=== PATIENT | female | born 2000 | race Caucasian/White ===

== ENCOUNTER 2020-09-30 12:04 | Outpatient (REF) | payer OTHER, SELFPAY ==
[2020-10-04 00:42] LABS: Lamotrigine Lamictal 8.2 mcg/mL (4.0-18.0)
[2020-10-04 19:57] LABS: Levetiracetam Keppra 28.5 mcg/mL (12.0-46.0)
== END 2020-09-30 12:05 | disposition home or self-care (01) ==
LOC: HO.LAB 12:04
PROVIDERS: PCP Family Medicine; Visit Provider Psychiatry & Neurology Neurology
DX: G40.209 Localization-related (focal) (partial) symptomatic epilepsy and epileptic syndromes with complex partial seizures, not intractable, without status epilepticus (principal); Z79.899 Other long term (current) drug therapy
CPT/HCPCS: 36415; 80175; 80177

== ENCOUNTER 2020-12-02 08:51 | Outpatient (REF) | payer OTHER, SELFPAY ==
[2020-12-02 11:23] LABS: MANUAL DIFF FLAG NO
[2020-12-02 11:29] LABS: Basophils Percent Auto 0.5 % (0-2); Eosinophils Absolute Auto 0.2 X10*3/uL (0.0-0.4); Eosinophils Percent Auto 2.9 % (0-4); Hematocrit 39.8 % (37-47); Hemoglobin 13.1 g/dl (12.0-16.0); Imm Gran Abs Auto 0.02 X10*3/uL (0.00-0.03); Imm Gran Pct Auto 0.3 % (0.0-0.4); Lymphocytes Absolute Auto 1.8 X10*3/uL (1.2-4.9); Mean Corpuscular HGB Conc 32.9 g/dl (31.0-35.0); Mean Corpuscular Hemoglobin 30.5 pg (27.0-33.0); Mean Corpuscular Volume 92.6 fL (80-98); Mean Platelet Volume 10.5 fL (9.4-12.3); Monocytes Absolute Auto 0.4 X10*3/uL (0.1-1.2); Monocytes Percent Auto 5.9 % (2-11); Neutrophils Absolute Auto 3.7 X10*3/uL (2.0-8.3); Neutrophils Percent Auto 60.4 % (45-73); Platelet Count 211 X10*3/uL (160-400); Red Cell Distribution Width 11.8 % (11.0-16.0); White Blood Count 6.1 X10*3/uL (4.8-10.8)
[2020-12-02 11:59] LABS: Alanine Aminotransferase 8 U/L (0-31); Albumin Level 4.7 g/dL (3.5-5.0); Alkaline Phosphatase 71 U/L (39-117); Anion Gap 12 (12-20); Aspartate Amino Transferase 13 U/L (5-31); Bilirubin Total 0.6 mg/dL (0.0-1.0); Blood Urea Nitrogen 11 mg/dL (9-16); Calcium 9.6 mg/dL (8.4-10.2); Carbon Dioxide 26 mmol/L (22-29); Chloride 108 mmol/L (96-108); Cholesterol 182 mg/dL; Estimated Glomerular Filt Rate > 60; Glucose Fasting 96 mg/dL (60-99); HDL Cholesterol 38 mg/dL; LDL Cholesterol Calculated 130 mg/dl; Potassium 4.8 mmol/L (3.3-5.1); Sodium 141 mmol/L (135-145); Triglycerides 70 mg/dL
[2020-12-02 12:10] LABS: TSH reflex Free T4 1.08 uIU/mL (0.32-4.0)
== END 2020-12-02 08:52 | disposition home or self-care (01) ==
LOC: HO.WFDLDS 08:51
PROVIDERS: Visit Provider Family Medicine
DX: Z00.00 Encounter for general adult medical examination without abnormal findings (principal)
CPT/HCPCS: 36415; 80053; 80061; 84443; 85025

== ENCOUNTER 2023-02-01 11:29 | Outpatient (AMB) | payer OTHER, SELFPAY ==
--- NOTE | 2023-02-01 11:33 | MHC.PC.OV ---
Vital Signs 02/01/23 11:34 Height 5 ft 6.5 in Weight 120 lb 8 oz BMI 19.2 BP 120/74 Blood Pressure Location Lt brachial Position Sitting Pulse 82 Pulse Source Pulse Oximeter Pulse Oximetry (%) 99 Oxygen Delivery Method Room Air Intake Visit Reasons: Disability paperwork Intake Note: Patient is here for dsiability paperwork. Allergies amoxicillin Allergy (Intermediate, Verified 02/01/23 11:40) Hives penicillin V Allergy (Intermediate, Verified 02/01/23 11:40) Hives Tobacco use date assessed: 02/01/23 Dental Screening Dental Screen Date: 02/01/23 Did you have a dental visit in the last 12 months?: No Did you have a dental problem in the last 6 months where you did not have access to dental care?: No Was dental information given to patient?: Patient declined HPI Disability paperwork HPI Details 22 y/o female presents to f/u disability paperwork for her epilepsy and anxiety/depression. [facility] Medical History (Updated 09/17/21 @ 11:27 by Sage Krueger) Anxiety Depression Epilepsy Family History Maternal Grandmother Diabetes Father High blood pressure Social History Housing: House Alcohol intake: never Patient Tobacco Use Status: Never used Tobacco e-Cigarette/Vaping Use: Currently Using Current occupational status: unemployed Cognitive needs: Yes (memory problems, needs to be reminded of things.) Hearing needs: Yes Vision needs: Yes (glasses) Questionnaire Thrive Questionnaire Date Thrive assessed: 08/18/22 FAREED-7 AMB Questionnaire FAREED-7 Date FAREED - 7 assessed: 08/18/22 Source: Developed by Drs. Alexis Jean, Fabiola Strickland, Brant Mcekon and colleagues, with an educational lisette from [employer]. Review of Systems Const Denies chills, Denies fatigue, Denies fever(s), Denies headache(s) and Denies weakness ENT Denies dizziness and Denies headache(s) Card Denies dyspnea Resp Denies cough, Denies dyspnea, Denies wheezing and Denies other (shortness of breath) Musc Denies numbness and Denies tingling Neuro Denies dizziness, Denies headache(s), Denies numbness, Denies tingling and Denies weakness Psych Reports anxiety and Reports depression Endo Denies fatigue Aller/Immun Denies wheezing Physical exam (Primary Care) Vital Signs: Last Vital Signs Pulse 82 02/01/23 11:34 BP 120/74 02/01/23 11:34 Pulse Ox 99 02/01/23 11:34 Oxygen Delivery Method Room Air 02/01/23 11:34 BMI result Body Mass Index 19.2 Tobacco/Smoking Status: Tobacco use Status Tobacco use date assessed 02/01/23 02/01/23 11:49 Patient Tobacco Use Status Never used Tobacco 02/01/23 11:33 e-Cigarette/Vaping Use Currently Using 02/01/23 11:49 Thrive Assessment: Date of Thrive Assessment Date Thrive assessed 08/18/22 02/01/23 11:33 Const General: well developed; No acute distress Nutritional Appearance: well nourished Orientation/consciousness: patient oriented x3 HENMT Head: Yes normocephalic and Yes atraumatic Eyes General: appearance normal, both eyes and all related structures Pupils: Equal, round and reactive pupils present EOM: EOMs intact bilaterally Resp Effort & Inspection: normal respiratory effort Neuro General: patient oriented x3 and gait normal Cranial nerves: Yes Equal, round and reactive pupils present Psych Affect: normal affect Assessment and Plan Assessment & Plan (1) Anxiety and depression: Code(s): F41.9 - Anxiety disorder, unspecified; F32.9 - Major depressive disorder, single episode, unspecified Plan: Taking clonazepam and sertraline As prescribed Patient has paperwork which she needs to have filled out but does not require my input Stable No changes made today (2) Complex partial seizure disorder: Code(s): G40.209 - Localization-related (focal) (partial) symptomatic epilepsy and epileptic syndromes with complex partial seizures, not intractable, without status epilepticus Plan: Taking her medications as prescribed Patient has paperwork which she needs to fill out but does not require my input Currently stable. Follow-up with Neurology as recommended (3) Family planning: Code(s): Z30.09 - Encounter for other general counseling and advice on contraception Plan: Patient had been on Junel in the past and tolerated this. She would like to resume contraception. Will refer her to micro computer specialist Orders: Referrals [employer] Referral G40.909 - Epilepsy, unspecified, not intractable, without status epilepticus, Z30.09 - Encounter for other general counseling and advice on contraception Coding Level of Care Code Est Pt Level 3 (38403) Diagnoses Anxiety and depression F41.9; F32.9 Complex partial seizure disorder G40.209 Family planning Z30.09
[2023-02-01 11:34] VITALS: BP 120/74; PULSE 82; O2SAT 99; BMI 19.2
== END 2023-02-01 12:14 | disposition home or self-care (01) ==
PROVIDERS: PCP Family Medicine; Visit Provider Family Medicine
DX: F41.9 Anxiety disorder, unspecified (principal); F32.9 Major depressive disorder, single episode, unspecified; G40.209 Localization-related (focal) (partial) symptomatic epilepsy and epileptic syndromes with complex partial seizures, not intractable, without status epilepticus; Z30.09 Encounter for other general counseling and advice on contraception
CPT/HCPCS: 99213

== ENCOUNTER 2023-08-22 15:51 | Outpatient (AMB) | payer OTHER, SELFPAY ==
[2023-08-22 16:12] VITALS: BP 118/70; PULSE 78; O2SAT 98; BMI 19.9
--- NOTE | 2023-08-22 16:12 | MHC.PC.OV ---
Vital Signs 08/22/23 16:12 Height 5 ft 6.5 in Weight 125 lb BMI 19.9 BP 118/70 Blood Pressure Location Lt brachial Position Sitting Pulse 78 Pulse Source Pulse Oximeter Pulse Oximetry (%) 98 Oxygen Delivery Method Room Air Intake Visit Reasons: Extended exam with f/u labs and health maint. Intake Note: Patient is here for extended exam, and she would like referral to Neurology and her control pills refill. Allergies amoxicillin Allergy (Intermediate, Verified 08/22/23 16:31) Hives penicillin V Allergy (Intermediate, Verified 08/22/23 16:31) Hives Tobacco use date assessed: 02/01/23 HPI Extended exam with f/u labs and health maint. HPI Details 23 y/o female presents for an extended exam with f/u labs and health maintenance. No recent labs to review. She is requesting referral to neurology for epilepsy. PHQ-9 17 and FAREED-7 19 today. Pt states she has her boyfriend for emotional support. She denies any thoughts of hurting herself but does note thoughts of being better off gone . Pt notes she walks for exercise and tries to keep herself active. [facility] Medical History Anxiety Depression Epilepsy Family History Maternal Grandmother Diabetes Father High blood pressure Social History Housing: House Alcohol intake: never Patient Tobacco Use Status: Never used Tobacco e-Cigarette/Vaping Use: Currently Using Current occupational status: unemployed Cognitive needs: Yes (memory problems, needs to be reminded of things.) Hearing needs: Yes Vision needs: Yes (glasses) Questionnaire PHQ-9 Over the last 2 weeks, how often have you been bothered by any of the following problems? 1. Little interest or pleasure in doing things: nearly every day 2. Feeling down, depressed, or hopeless: nearly every day 3. Trouble falling or staying asleep, or sleeping too much: nearly every day 4. Feeling tired or having little energy: more than half the days 5. Poor appetite or overeating: not at all 6. Feeling bad about yourself - or that you are a failure or have let yourself or your family down: nearly every day 7. Trouble concentrating on things, such as reading the newspaper or watching television: several days 8. Moving or speaking so slowly that other people could have noticed. Or the opposite - being so fidgety or restless that you have been moving around a lot more than usual: several days 9. Thoughts that you would be better off or of hurting yourself in some way: several days Total score: 17 Depression Screening Interpretation: Positive Depression Screening Follow-up: Change in Medication (Increase?sertraline) Depression Screening Done: Yes 66667 - PHQ-9 Billing: Yes Source: Developed by Drs. Alexis Jean, Fabiola Strickland, Brant Mckeon and colleagues, with an educational lisette from [employer]. Thrive Questionnaire Date Thrive assessed: 08/22/23 I am a: Patient What is your living situation today?: I have a steady place to live Within the past 12 months, did the food you bought not last and you didn't have the money to get more?: Never true Within the past 12 months, did you worry whether your food would run out before you got money to buy more?: Never true Do you have trouble paying for medicines?: No Do you have trouble getting transportation to medical appointments?: Yes Do you have trouble paying your heating and electricity bill?: No Do you have trouble taking care of your child, family member or friend?: No Do you have trouble with day-to-day activities such as bathing, preparing meals, shopping, managing finances, etc.?: Yes Are you currently unemployed and looking for a job?: No Are you interested in more education?: No THRIVE Score: 1 AUDIT C Alcohol Use Questionnaire (AUDIT-C) 1. How often do you have a drink containing alcohol?: Monthly or less 2. How many drinks containing alcohol do you have on a typical day when you are drinking?: 3 or 4 3. How often do you have six or more drinks on one occasion?: Never Total Score: 2 FAREED-7 AMB Questionnaire FAREED-7 Date FAREED - 7 assessed: 08/22/23 Feeling nervous, anxious, or on edge: 3 = Nearly every day Not being able to stop or control worryin = Nearly every day Worrying too much about different things: 3 = Nearly every day Trouble relaxin = Nearly every day Being so restless that it is hard to sit still: 1 = Several days Becoming easily annoyed or irritable: 3 = Nearly every day Feeling afraid as if something awful might happen: 3 = Nearly every day Total FAREED-7 score (0-4 normal; 5-9 mild; 10-14 moderate; 15-21 severe): 19 Source: Developed by Drs. Alexis Jean, Fabiola Strickland, Brant Mckeon and colleagues, with an educational lisette from [employer]. FAREED-7 Assessment Billing FAREED-7 Assessment Tool: FAREED-7 Assessment 50193 Review of Systems Const Denies chills, Denies fatigue, Denies fever(s), Denies headache(s) and Denies weakness Eyes Denies change in vision ENT Denies dizziness, Denies headache(s), Denies hearing loss, Denies nasal congestion, Denies sinus pain, Denies sinus pressure and Denies sore throat Card Denies chest pain, Denies lightheadedness, Denies dyspnea and Denies other (palpitations) Resp Denies cough, Denies dyspnea and Denies wheezing GI Denies abdominal pain, Denies melena, Denies hematochezia, Denies change in bowel habits, Denies dyspepsia and Denies nausea Denies hematuria and Denies dysuria Musc Denies abnormal gait, Denies myalgias, Denies arthralgias, Denies numbness and Denies tingling Skin/Breast Denies rash, Denies unusual bruising and Denies wounds Neuro Denies abnormal gait, Denies dizziness, Denies headache(s), Denies memory loss, Denies numbness, Denies Sensory deficit (Neuro), Denies tingling and Denies weakness Psych Reports anxiety, Reports depression and Denies memory loss Endo Denies cold intolerance, Denies fatigue, Denies heat intolerance, Denies polydipsia and Denies polyuria Timoteo/Lymph Denies easy bleeding and Denies easy bruising Aller/Immun Denies wheezing Physical exam (Primary Care) Vital Signs: Last Vital Signs Pulse 78 08/22/23 16:12 BP 118/70 08/22/23 16:12 Pulse Ox 98 08/22/23 16:12 Oxygen Delivery Method Room Air 08/22/23 16:12 BMI result Body Mass Index 19.9 Tobacco/Smoking Status: Tobacco use Status Tobacco use date assessed 02/01/23 08/22/23 16:16 Patient Tobacco Use Status Never used Tobacco 08/22/23 16:16 e-Cigarette/Vaping Use Currently Using 08/22/23 16:16 PHQ-9: PHQ-9 Score PHQ-9: Total score 17 08/22/23 16:59 Depression Screening Interpretation: Positive Depression Screening Follow-up: Change in Medication (Increase?sertraline) Thrive Assessment: Date of Thrive Assessment Date Thrive assessed 08/22/23 08/22/23 16:31 Const General: no acute distress, well developed, alert and awake Nutritional Appearance: well nourished Orientation/consciousness: patient oriented x3 HENMT Head: Yes normocephalic and Yes atraumatic Ears: hearing grossly normal bilaterally and TM's normal bilaterally General nose exam: Normal external nose present and Normal nares present Mouth: Normal oral and palatal mucosa present and moist mucous membranes Teeth and gingiva: dentition normal Throat: Yes posterior oropharynx normal Eyes General: appearance normal, both eyes and all related structures Pupils: Equal, round and reactive pupils present and Pupil accommodation reflex normal EOM: EOMs intact bilaterally Neck Neck: Yes normal visual inspection, Yes no lymphadenopathy and Yes trachea midline Thyroid: Thyroid normal Carotids: no bruits Lymphatic: no lymphadenopathy noted Chest Chest palpation & inspection: normal inspection of the chest Resp Effort & Inspection: normal respiratory effort Auscultation: clear to auscultation bilaterally Cardio Rate: regular rate Rhythm: regular rhythm Heart sounds: S1 normal heart sound present, S2 normal heart sound present, no gallops, no murmurs and no rubs Bruits: no abdominal aortic bruits and no carotid bruits GI Palpation (GI): No Abdominal aortic bruit present, Soft to palpation, nontender, No hepatosplenomegaly present and No Rebound tenderness present Auscultation: normal bowel sounds General: Yes no CVA tenderness Back/Spine/Pelvis Back: no CVA tenderness Cervical Spine: cervical ROM normal and No Cervical spine tenderness Thoracic/Lumbar Spine: thoraco-lumbar ROM normal, No pain with thoraco-lumbar ROM, No thoracic spinal tenderness and No lumbar spinal tenderness Skin Lesions: no lesions Rashes: no rashes Trauma: no lacerations or abrasions Wounds: no wounds Nails: normal Neuro General: patient oriented x3 Cranial nerves: Yes Equal, round and reactive pupils present Cognition (Neuro): normal cognition Gait exam (Neuro): Normal gait present Motor exam (neuro): 5/5 motor strength present throughout Sensory Exam: No Sensory deficit (Neuro) Deep tendon reflexes (DTR's): Right patellar reflex intensity grade: 2+ and Left patellar reflex intensity grade: 2+ Extrem General: Yes normal to inspection and No edema Psych Appearance: grossly normal Affect: normal affect Attitude: cooperative Thought process: Normal thought process present Assessment and Plan Assessment & Plan (1) Anxiety and depression: Code(s): F41.9 - Anxiety disorder, unspecified; F32.9 - Major depressive disorder, single episode, unspecified Plan: Scoring?high?on?PHQ-9?and?fareed?7 She?is?on?sertraline?and?clonazepam Will?increase?her?sertraline Asking?the?nurse?navigator?to?connect?her?with?a?therapist Patient?contracts?for?safety Also?encouraged?exercise Will?follow-up?in?a?month (2) Epilepsy: Code(s): G40.909 - Epilepsy, unspecified, not intractable, without status epilepticus Plan: Patient?requests?referral?to?Neurology,? Referred (3) Screening for cervical cancer: Code(s): Z12.4 - Encounter for screening for malignant neoplasm of cervix Plan: She?has?been?referred?to?OBGYN No?available?note?or?pathology?results Will?discuss?with?her?at?next?visit?and?make?referral?again?if?needed. (4) Adult general medical exam: Code(s): Z00.00 - Encounter for general adult medical examination without abnormal findings Plan: 23-year-old?female?presents?for?an?extended?exam Encouraged?healthy?diet?with?active?lifestyle?and?plenty?of?exercise Orders: Orders Comprehensive [place]. Panel Fast Today Z00.00 - Encounter for general adult medical examination without abnormal findings Complete Blood Count Auto Diff Today Z00.00 - Encounter for general adult medical examination without abnormal findings UA and rflx microscopic Today Z00.00 - Encounter for general adult medical examination without abnormal findings Lipid Panel Today Z00.00 - Encounter for general adult medical examination without abnormal findings Microalbumin, Random (w Creat) Today I10 - Essential (primary) hypertension TSH reflex Free T4 Today Z00.00 - Encounter for general adult medical examination without abnormal findings Referrals Neurology Referral G40.909 - Epilepsy, unspecified, not intractable, without status epilepticus Nurse Navigator Referral F32.9 - Major depressive disorder, single episode, unspecified, F41.9 - Anxiety disorder, unspecified Medications: Changed From sertraline 100 mg PO DAILY 90 tabs 2RF To sertraline 150 mg (1.5 x 100 mg) PO DAILY 135 tabs 2RF 90 days Refilled norethindrone-e.estradiol-iron 1 mg-20 mcg (21)/75 mg (7) (07/08 (28)) 1 tab PO DAILY 12 weeks 84 tabs 3RF Coding Level of Care Code Est Pt Level 4 (66795) Diagnoses Anxiety and depression F41.9; F32.9 Epilepsy G40.909 Screening for cervical cancer Z12.4 Adult general medical exam Z00.00 Additional Codes FAREED-7 Assessment Billing - FAREED-7 Assessment Tool: FAREED-7 Assessment 99502 ([id number])
== END 2023-08-22 17:00 ==
PROVIDERS: PCP Family Medicine; Visit Provider Family Medicine
DX: Z00.00 Encounter for general adult medical examination without abnormal findings (principal); F41.9 Anxiety disorder, unspecified; F32.9 Major depressive disorder, single episode, unspecified; G40.909 Epilepsy, unspecified, not intractable, without status epilepticus
CPT/HCPCS: 96127; 99214; 99395

== ENCOUNTER 2023-11-16 14:48 | Outpatient (AMB) | payer OTHER, SELFPAY ==
--- NOTE | 2023-11-16 14:50 | MHC.PC.OV ---
Vital Signs 11/16/23 14:55 Height 5 ft 6.5 in Weight 124 lb BMI 19.7 BP 116/74 Blood Pressure Location Lt brachial Position Sitting Pulse 83 Pulse Source Pulse Oximeter Pulse Oximetry (%) 98 Oxygen Delivery Method Room Air Intake Visit Reasons: Depression/Anxiety F/U Intake Note: Patient is here to follow up on anxiety and depression today. She needs a note for her medical marijuana card. Allergies amoxicillin Allergy (Intermediate, Verified 11/16/23 14:56) Hives penicillin V Allergy (Intermediate, Verified 11/16/23 14:56) Hives Tobacco use date assessed: 11/16/23 Dental Screening Dental Screen Date: 02/01/23 HPI Depression/Anxiety F/U HPI Details 23 y/o female presents to f/u anxiety/depression. Had increased her sertraline and had asked the nurse navigator to refer her for therapy. She is on sertraline 150mg, clonazepam 0.5mg. PHQ-9 21, FAREED-7 18 today. Pt notes she has not been contacted yet by neurology. [facility] Medical History Anxiety Depression Epilepsy Family History Maternal Grandmother Diabetes Father High blood pressure Social History Housing: House Alcohol intake: never Patient Tobacco Use Status: Never used Tobacco e-Cigarette/Vaping Use: Currently Using Current occupational status: unemployed Cognitive needs: Yes (memory problems, needs to be reminded of things.) Hearing needs: Yes Vision needs: Yes (glasses) Questionnaire PHQ-9 Over the last 2 weeks, how often have you been bothered by any of the following problems? 1. Little interest or pleasure in doing things: nearly every day 2. Feeling down, depressed, or hopeless: nearly every day 3. Trouble falling or staying asleep, or sleeping too much: nearly every day 4. Feeling tired or having little energy: nearly every day 5. Poor appetite or overeating: several days 6. Feeling bad about yourself - or that you are a failure or have let yourself or your family down: nearly every day 7. Trouble concentrating on things, such as reading the newspaper or watching television: more than half the days 8. Moving or speaking so slowly that other people could have noticed. Or the opposite - being so fidgety or restless that you have been moving around a lot more than usual: more than half the days 9. Thoughts that you would be better off or of hurting yourself in some way: several days Total score: 21 Depression Screening Interpretation: Positive Depression Screening Done: Yes [id number] - PHQ-9 Billing: Yes Source: Developed by Drs. Alexis Jean, Fabiola Strickland, Brant Mckeon and colleagues, with an educational lisette from [employer]. Thrive Questionnaire Date Thrive assessed: 08/22/23 FAREED-7 AMB Questionnaire FAREED-7 Date FAREED - 7 assessed: 08/22/23 Feeling nervous, anxious, or on edge: 3 = Nearly every day Not being able to stop or control worryin = Nearly every day Worrying too much about different things: 3 = Nearly every day Trouble relaxin = Nearly every day Being so restless that it is hard to sit still: 2 = More than half the days Becoming easily annoyed or irritable: 2 = More than half the days Feeling afraid as if something awful might happen: 2 = More than half the days Total FAREED-7 score (0-4 normal; 5-9 mild; 10-14 moderate; 15-21 severe): 18 Source: Developed by Drs. Alexis Jean, Fabiola Strickland, Brant Mckeon and colleagues, with an educational lisette from [employer]. FAREED-7 Assessment Billing FAREED-7 Assessment Tool: FAREED-7 Assessment 80470 Review of Systems Const Denies chills, Denies fatigue, Denies fever(s), Denies headache(s) and Denies weakness ENT Denies dizziness and Denies headache(s) Card Denies dyspnea Resp Denies cough, Denies dyspnea, Denies wheezing and Denies other (shortness of breath) Musc Denies numbness and Denies tingling Neuro Denies dizziness, Denies headache(s), Denies numbness, Denies tingling and Denies weakness Psych Reports anxiety and Reports depression Endo Denies fatigue Aller/Immun Denies wheezing Physical exam (Primary Care) Vital Signs: Last Vital Signs Pulse 83 11/16/23 14:55 BP 116/74 11/16/23 14:55 Pulse Ox 98 11/16/23 14:55 Oxygen Delivery Method Room Air 11/16/23 14:55 BMI result Body Mass Index 19.7 Tobacco/Smoking Status: Tobacco use Status Tobacco use date assessed 11/16/23 11/16/23 15:02 Patient Tobacco Use Status Never used Tobacco 11/16/23 14:52 e-Cigarette/Vaping Use Currently Using 11/16/23 14:52 PHQ-9: PHQ-9 Score PHQ-9: Total score 21 11/16/23 15:27 Depression Screening Interpretation: Positive Thrive Assessment: Date of Thrive Assessment Date Thrive assessed 08/22/23 11/16/23 14:52 Const General: well developed; No acute distress Nutritional Appearance: well nourished Orientation/consciousness: patient oriented x3 HENMT Head: Yes normocephalic and Yes atraumatic Eyes General: appearance normal, both eyes and all related structures Pupils: Equal, round and reactive pupils present EOM: EOMs intact bilaterally Resp Effort & Inspection: normal respiratory effort Neuro General: patient oriented x3 and gait normal Cranial nerves: Yes Equal, round and reactive pupils present Psych Affect: normal affect Assessment and Plan Assessment & Plan (1) Anxiety and depression: Code(s): F41.9 - Anxiety disorder, unspecified; F32.9 - Major depressive disorder, single episode, unspecified Plan: Significant?anxiety?and?depression, ongoing. Had?increased?sertraline?at?her?last?visit. Would?continue?this?and?clonazepam?as?prescribed. Had?referred?her?to?the?nurse?navigator?to?connect?her?with?a?therapist?but?phone?number?listed?in?EMR?is?not?connected. Will?ask?her?to?provide?a?number?we?can?reach?her?at?and?have?the?nurse?navigator?call?her. (2) Epilepsy: Code(s): G40.909 - Epilepsy, unspecified, not intractable, without status epilepticus Plan: Had?referred?her?to?Neurology?and?they?have?not?contacted?her?yet?for?the?same?reason?as?above Will?send?referral?again?and?have?her?update?our?office?with?a?number?she?can?be?reached?at (3) Screening for cervical cancer: Code(s): Z12.4 - Encounter for screening for malignant neoplasm of cervix Plan: As?above,?will?update?phone?number?and?re?issue?referral (4) PTSD (post-traumatic stress disorder): Code(s): F43.10 - Post-traumatic stress disorder, unspecified Plan: History?of?PTSD?as?well?as?anxiety?and?depression. Currently?unable?to?work. Continue?medication?and?advised?a?therapist.??Will?also?likely?need?a?psychiatrist. For?now,?patient?is?unable?to?work?and?I?will?fill?out?paperwork?regarding?disability. Can?also?provide?a?letter?as?patient?is?physically?healthy?enough?for?trial?of?medical?marijuana?which?may?help?her?symptoms. Coding Level of Care Code Est Pt Level 4 (82989) Diagnoses Anxiety and depression F41.9; F32.9 Epilepsy G40.909 Screening for cervical cancer Z12.4 PTSD (post-traumatic stress disorder) F43.10 Additional Codes FAREED-7 Assessment Billing - FAREED-7 Assessment Tool: FAREED-7 Assessment 36951 ([id number])
[2023-11-16 14:55] VITALS: BP 116/74; PULSE 83; O2SAT 98; BMI 19.7
== END 2023-11-16 16:28 | disposition home or self-care (01) ==
PROVIDERS: PCP Family Medicine; Visit Provider Family Medicine
DX: G40.909 Epilepsy, unspecified, not intractable, without status epilepticus (principal); F41.9 Anxiety disorder, unspecified; F32.9 Major depressive disorder, single episode, unspecified; F43.10 Post-traumatic stress disorder, unspecified
CPT/HCPCS: 99214

== ENCOUNTER 2023-12-12 10:09 | Outpatient (REF) | payer OTHER, SELFPAY ==
[2023-12-12 11:29] LABS: MANUAL DIFF FLAG NO
[2023-12-12 11:47] LABS: Basophils Percent Auto 0.3 % (0-2); Eosinophils Absolute Auto 0.1 X10*3/uL (0.0-0.4); Eosinophils Percent Auto 1.7 % (0-4); Hematocrit 35.6 % (37.0-47.0); Imm Gran Abs Auto 0.03 X10*3/uL (0.00-0.03); Imm Gran Pct Auto 0.4 % (0.0-0.4); Lymphocytes Absolute Auto 1.1 X10*3/uL (1.2-4.9); Lymphocytes Percent Auto 14.5 % (20-40); Mean Corpuscular HGB Conc 33.7 g/dl (31.0-35.0); Mean Corpuscular Hemoglobin 31.7 pg (27.0-33.0); Mean Corpuscular Volume 93.9 fL (80.0-98.0); Mean Platelet Volume 10.2 fL (9.4-12.3); Monocytes Absolute Auto 0.2 X10*3/uL (0.1-1.2); Monocytes Percent Auto 2.8 % (2-11); Neutrophils Absolute Auto 6.1 x10*3/uL (2.0-8.3); Neutrophils Percent Auto 80.3 % (45-73); Platelet Count 175 X10*3/uL (160-400); Red Blood Count 3.79 X10*6/uL (4.20-5.50); Red Cell Distribution Width 12.5 % (11.0-16.0); White Blood Count 7.6 X10*3/uL (4.8-10.8)
[2023-12-12 12:16] LABS: Appearance Urine Clear; Color Urine Yellow; Glucose Urine UA Negative (Negative); Leukocyte Esterase Urine Negative (Negative); Nitrite Urine Negative (Negative); PH 6.5 (5.0-9.0); Specific Gravity - Urine 1.015 (1.005-1.025); UMIC TRIGGER UA YES; Urine Blood Moderate (2+) (Negative); Urine Ketones Negative (Negative); Urine Protein Negative (Neg-Trace)
[2023-12-12 12:22] LABS: Alanine Aminotransferase 5 U/L (0-31); Albumin Level 4.4 g/dL (3.5-5.0); Alkaline Phosphatase 63 U/L (39-117); Anion Gap 10 (12-20); Aspartate Amino Transferase 12 U/L (5-31); Bilirubin Total 0.2 mg/dL (0.0-1.0); Blood Urea Nitrogen 9 mg/dL (9-16); Calcium 9.3 mg/dL (8.4-10.2); Carbon Dioxide 26 mmol/L (22-29); Chloride 106 mmol/L (96-108); Cholesterol 169 mg/dL (<200); Estimated Glomerular Filt Rate > 60; Glucose Fasting 95 mg/dL (60-99); HDL Cholesterol 43 mg/dL (>40); LDL Cholesterol Calculated 114 mg/dL (<100); Potassium 4.3 mmol/L (3.3-5.1); Sodium 138 mmol/L (135-145); Total Protein 6.8 g/dL (6.5-8.0); Triglycerides 61 mg/dL (<150)
[2023-12-12 12:26] LABS: Creatinine Urine 67.36 mg/dL; Microalbum/Creatinine Ratio Ur 8.9 ug/mg cr (<30)
[2023-12-12 12:42] LABS: TSH reflex Free T4 1.75 uIU/mL (0.32-4.0)
[2023-12-12 12:50] LABS: Bacteria Urine Trace (None Seen); Hyaline Casts Urine 0-2 /LPF (0-2); RBC Urine 0-2 /HPF (0-2); WBC Urine 0-5 /HPF (0-5)
== END 2023-12-12 10:10 | disposition home or self-care (01) ==
LOC: HO.WFDLDS 10:09
PROVIDERS: Visit Provider Family Medicine
DX: Z00.00 Encounter for general adult medical examination without abnormal findings (principal); I10 Essential (primary) hypertension
CPT/HCPCS: 36415; 80053; 80061; 81001; 81003; 82043; 82570; 84443; 85025

== ENCOUNTER 2024-01-23 16:22 | Outpatient (AMB) | payer OTHER, SELFPAY ==
--- NOTE | 2024-01-23 16:42 | MHC.PC.OV ---
Vital Signs 01/23/24 16:50 Height 5 ft 7.32 in Weight 121 lb 4 oz BMI 18.8 BP 100/60 Blood Pressure Location Rt brachial Position Sitting Respiration 12 Pulse 76 Pulse Source Pulse Oximeter Temp 98.6 F Temp Source Oral Pulse Oximetry (%) 98 Oxygen Delivery Method Room Air Intake Visit Reasons: f/u anxiety and depression Intake Note: follow up for anxiety and depression Allergies amoxicillin Allergy (Intermediate, Verified 01/23/24 16:43) Hives penicillin V Allergy (Intermediate, Verified 01/23/24 16:43) Hives Medication List - Last Reconciled 01/23/24 by Mehrdad Chu MD clonazepam 0.5 mg PO BEDTIME folic acid 1 mg PO DAILY lamotrigine 300 mg PO BID levetiracetam 0 mg PO norethindrone-e.estradiol-iron 1 mg-20 mcg ()/75 mg (7) (07/08 ()) 1 tab PO DAILY 12 weeks oxcarbazepine 150 mg PO BID sertraline 150 mg (1.5 x 100 mg) PO DAILY 90 days thiamine HCl (vitamin B1) 100 mg PO DAILY Tobacco use date assessed: 11/16/23 Dental Screening Dental Screen Date: 02/01/23 HPI f/u anxiety and depression HPI Details 23 y/o female presents to f/u anxiety/depression. PHQ-9 10, FAREED-7 11 today. Continues to use her lamotrigine 300mg b.i.d. She feels clonazepam is working. She does feel anxious as she feels on edge about her seizures from her epilepsy. [facility] Medical History Anxiety Depression Epilepsy Family History Maternal Grandmother Diabetes Father High blood pressure Social History Housing: House Alcohol intake: never Patient Tobacco Use Status: Never used Tobacco e-Cigarette/Vaping Use: Currently Using Current occupational status: unemployed Cognitive needs: Yes (memory problems, needs to be reminded of things.) Hearing needs: Yes Vision needs: Yes (glasses) Questionnaire PHQ-9 Over the last 2 weeks, how often have you been bothered by any of the following problems? 1. Little interest or pleasure in doing things: several days 2. Feeling down, depressed, or hopeless: several days 3. Trouble falling or staying asleep, or sleeping too much: nearly every day 4. Feeling tired or having little energy: several days 5. Poor appetite or overeating: not at all 6. Feeling bad about yourself - or that you are a failure or have let yourself or your family down: more than half the days 7. Trouble concentrating on things, such as reading the newspaper or watching television: not at all 8. Moving or speaking so slowly that other people could have noticed. Or the opposite - being so fidgety or restless that you have been moving around a lot more than usual: several days 9. Thoughts that you would be better off or of hurting yourself in some way: several days Total score: 10 Depression Screening Interpretation: Positive Depression Screening Done: Yes 11534 - PHQ-9 Billing: Yes Source: Developed by Drs. Alexis Jean, Fabiola Strickland, Brant Mckeon and colleagues, with an educational lisette from [employer]. Thrive Questionnaire Date Thrive assessed: 01/23/24 I am a: Patient What is your living situation today?: I have a steady place to live Within the past 12 months, did the food you bought not last and you didn't have the money to get more?: Sometimes True Within the past 12 months, did you worry whether your food would run out before you got money to buy more?: Sometimes True Do you have trouble paying for medicines?: No Do you have trouble getting transportation to medical appointments?: Yes Do you have trouble paying your heating and electricity bill?: No Do you have trouble taking care of your child, family member or friend?: No Do you have trouble with day-to-day activities such as bathing, preparing meals, shopping, managing finances, etc.?: Yes Are you currently unemployed and looking for a job?: No Are you interested in more education?: Yes Please select the resources that you would like help with: Education Currently or been in a relationship where the following occur: No concerns reported THRIVE Score: 3 AUDIT C Alcohol Use Questionnaire (AUDIT-C) 1. How often do you have a drink containing alcohol?: Monthly or less 2. How many drinks containing alcohol do you have on a typical day when you are drinking?: 3 or 4 3. How often do you have six or more drinks on one occasion?: Less than monthly Total Score: 3 Score Reviewed/Action Taken: Yes FAREED-7 AMB Questionnaire FAREED-7 Date FAREED - 7 assessed: 01/23/24 Feeling nervous, anxious, or on edge: 2 = More than half the days Not being able to stop or control worryin = Several days Worrying too much about different things: 2 = More than half the days Trouble relaxin = More than half the days Being so restless that it is hard to sit still: 1 = Several days Becoming easily annoyed or irritable: 1 = Several days Feeling afraid as if something awful might happen: 2 = More than half the days Total FAREED-7 score (0-4 normal; 5-9 mild; 10-14 moderate; 15-21 severe): 11 Source: Developed by Drs. Alexis Jean, Fabiola Strickland, Brant Mckeon and colleagues, with an educational lisette from [employer]. FAREED-7 Assessment Billing FAREED-7 Assessment Tool: FAREED-7 Assessment 86503 Review of Systems Const Denies chills, Denies fatigue, Denies fever(s), Denies headache(s) and Denies weakness ENT Denies dizziness and Denies headache(s) Card Denies dyspnea Resp Denies cough, Denies dyspnea, Denies wheezing and Denies other (shortness of breath) Musc Denies numbness and Denies tingling Neuro Denies dizziness, Denies headache(s), Denies numbness, Denies tingling and Denies weakness Psych Reports anxiety and Reports depression Endo Denies fatigue Aller/Immun Denies wheezing Physical exam (Primary Care) Vital Signs: Last Vital Signs Temp 98.6 F 01/23/24 16:50 Pulse 76 01/23/24 16:50 Resp 12 01/23/24 16:50 BP 90/60 01/23/24 16:50 Pulse Ox 98 01/23/24 16:50 Oxygen Delivery Method Room Air 01/23/24 16:50 BMI result Body Mass Index 18.8 Tobacco/Smoking Status: Tobacco use Status Tobacco use date assessed 11/16/23 01/23/24 16:51 Patient Tobacco Use Status Never used Tobacco 01/23/24 16:51 e-Cigarette/Vaping Use Currently Using 01/23/24 16:51 PHQ-9: PHQ-9 Score PHQ-9: Total score 10 01/23/24 16:51 Depression Screening Interpretation: Positive Thrive Assessment: Date of Thrive Assessment Date Thrive assessed 01/23/24 01/23/24 16:51 Currently or been in a relationship where the following occur: No concerns reported Const General: well developed; No acute distress Nutritional Appearance: well nourished Orientation/consciousness: patient oriented x3 HEN[facility] Head: Yes normocephalic and Yes atraumatic Eyes General: appearance normal, both eyes and all related structures Pupils: Equal, round and reactive pupils present EOM: EOMs intact bilaterally Resp Effort & Inspection: normal respiratory effort Auscultation: clear to auscultation bilaterally Cardio Rate: regular rate Rhythm: regular rhythm Heart sounds: S1 normal heart sound present, S2 normal heart sound present, no gallops, no murmurs and no rubs Neuro General: patient oriented x3 and gait normal Cranial nerves: Yes Equal, round and reactive pupils present Assessment and Plan Assessment & Plan (1) Anxiety and depression: Code(s): F41.9 - Anxiety disorder, unspecified; F32.9 - Major depressive disorder, single episode, unspecified Plan: Ongoing?anxiety?and?depression. Patient?notes?that?she?is?fairly?stable?on?current?regimen?of?sertraline?and?clonazepam. Denies?any?plans?for?self-harm?or?harming?others Patient?agrees?that?she?may?benefit?from?a?therapist?and?and?made?a?referral?today (2) PTSD (post-traumatic stress disorder): Code(s): F43.10 - Post-traumatic stress disorder, unspecified Plan: As?above,?patient?is?referred?to?[facility]outpatient?psychiatry?consult (3) Epilepsy: Code(s): G40.909 - Epilepsy, unspecified, not intractable, without status epilepticus Plan: Patient?was?referred?to?neurology?at?prior?office?visit?and?she?says?she?has?appointment?with??Damian?coming?up?this?month Follow-up?with?Neurology?as?recommended Orders: Referrals Psychiatry Outpatient Consultation Service F32.9 - Major depressive disorder, single episode, unspecified, F41.9 - Anxiety disorder, unspecified, F43.10 - Post-traumatic stress disorder, unspecified Coding Level of Care Code Est Pt Level 3 (24972) Diagnoses Anxiety and depression F41.9; F32.9 PTSD (post-traumatic stress disorder) F43.10 Epilepsy G40.909 Additional Codes FAREED-7 Assessment Billing - FAREED-7 Assessment Tool: FAREED-7 Assessment 78839 ([id number])
[2024-01-23 16:50] VITALS: BP 100/60; PULSE 76; RESP 12; TEMP 37; O2SAT 98; BMI 18.8
== END 2024-01-23 17:02 | disposition home or self-care (01) ==
PROVIDERS: PCP Family Medicine; Visit Provider Family Medicine
DX: G40.909 Epilepsy, unspecified, not intractable, without status epilepticus (principal); F41.9 Anxiety disorder, unspecified; F32.9 Major depressive disorder, single episode, unspecified; F43.10 Post-traumatic stress disorder, unspecified
CPT/HCPCS: 99213

== ENCOUNTER 2024-10-03 10:53 | Outpatient (AMB) | payer OTHER, SELFPAY ==
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
== END 2024-10-03 12:33 | disposition home or self-care (01) ==
LOC: HO.HMCFM 10:53
PROVIDERS: PCP Family Medicine; Visit Provider Family Medicine
DX: F41.9 Anxiety disorder, unspecified (principal); F32.9 Major depressive disorder, single episode, unspecified; F43.10 Post-traumatic stress disorder, unspecified; G40.909 Epilepsy, unspecified, not intractable, without status epilepticus

== ENCOUNTER → 2024-10-03 10:53 | Outpatient (BNVA) | payer OTHER, SELFPAY | PROVIDERS: PCP Family Medicine; Visit Provider Family Medicine | DX: F41.9 Anxiety disorder, unspecified (principal); F32.9 Major depressive disorder, single episode, unspecified; F43.10 Post-traumatic stress disorder, unspecified; G40.909 Epilepsy, unspecified, not intractable, without status epilepticus | CPT/HCPCS: 96127; 99212 ==

== ENCOUNTER 2024-12-06 11:25 | Outpatient (REF) | payer MEDICAID, SELFPAY ==
[2024-12-06 14:35] LABS: MANUAL DIFF FLAG NO
[2024-12-06 14:37] LABS: Basophils Percent Auto 0.4 % (0-2); Eosinophils Absolute Auto 0.1 X10*3/uL (0.0-0.4); Eosinophils Percent Auto 1.8 % (0-4); Hematocrit 36.7 % (37.0-47.0); Hemoglobin 12.4 g/dl (12.0-16.0); Imm Gran Abs Auto 0.01 X10*3/uL (0.00-0.03); Imm Gran Pct Auto 0.2 % (0.0-0.4); Lymphocytes Absolute Auto 1.5 X10*3/uL (1.2-4.9); Lymphocytes Percent Auto 29.4 % (20-40); Mean Corpuscular HGB Conc 33.8 g/dl (31.0-35.0); Mean Corpuscular Hemoglobin 32.8 pg (27.0-33.0); Mean Corpuscular Volume 97.1 fL (80.0-98.0); Mean Platelet Volume 9.6 fL (9.4-12.3); Monocytes Absolute Auto 0.3 X10*3/uL (0.1-1.2); Monocytes Percent Auto 6.3 % (2-11); Neutrophils Absolute Auto 3.2 x10*3/uL (2.0-8.3); Neutrophils Percent Auto 61.9 % (45-73); Platelet Count 192 X10*3/uL (160-400); Red Blood Count 3.78 X10*6/uL (4.20-5.50); Red Cell Distribution Width 12.3 % (11.0-16.0); White Blood Count 5.1 X10*3/uL (4.8-10.8)
[2024-12-06 15:06] LABS: Alanine Aminotransferase 10 U/L (0-31); Albumin Level 4.6 g/dL (3.5-5.0); Alkaline Phosphatase 54 U/L (39-117); Anion Gap 11 (12-20); Aspartate Amino Transferase 21 U/L (5-31); Bilirubin Total 0.3 mg/dL (0.0-1.0); Blood Urea Nitrogen 9 mg/dL (9-16); Calcium 9.3 mg/dL (8.4-10.2); Carbon Dioxide 26 mmol/L (22-29); Chloride 105 mmol/L (96-108); Cholesterol 163 mg/dL (<200); Estimated Glomerular Filt Rate > 60; Glucose Fasting 96 mg/dL (60-99); HDL Cholesterol 72 mg/dL (>40); LDL Cholesterol Calculated 68 mg/dL (<100); Potassium 3.6 mmol/L (3.3-5.1); Sodium 138 mmol/L (135-145); Total Protein 6.6 g/dL (6.5-8.0); Triglycerides 115 mg/dL (<150)
[2024-12-06 15:12] LABS: TSH reflex Free T4 1.28 uIU/mL (0.32-4.0); Vitamin D 25-OH Total 8.3 ng/mL (>30)
== END 2024-12-06 11:26 | disposition home or self-care (01) ==
LOC: HO.WFDLDS 11:25
PROVIDERS: Visit Provider Family Medicine
DX: Z00.00 Encounter for general adult medical examination without abnormal findings (principal); E55.9 Vitamin D deficiency, unspecified
CPT/HCPCS: 36415; 80053; 80061; 82306; 84443; 85025

== ENCOUNTER 2024-12-13 10:30 | Outpatient (AMB) | payer OTHER, SELFPAY ==
--- NOTE | 2024-12-13 10:37 | MHC.PC.OV ---
Vital Signs 12/13/24 10:44 Height 5 ft 7.32 in Weight 145 lb BMI 22.5 BP 124/76 Blood Pressure Location Lt brachial Position Sitting Respiration 12 Pulse 70 Pulse Source Pulse Oximeter Temp 98.2 F Temp Source Oral Pulse Oximetry (%) 99 Oxygen Delivery Method Room Air Intake Visit Reasons: 2-3 mo f/u labs Intake Note: Three months follow up, labs. Malt Loader Required: No Allergies amoxicillin Allergy (Intermediate, Verified 12/13/24 10:40) Hives penicillin V Allergy (Intermediate, Verified 12/13/24 10:40) Hives mold Allergy (Intermediate, Uncoded 12/13/24 10:40) Hives Medication List - Last Reconciled 12/13/24 by Mehrdad Chu MD cenobamate (Xcopri) 50 mg PO DAILY cholecalciferol (vitamin D3) 50 mcg PO DAILY 90 days clonazepam 0.5 mg PO BEDTIME folic acid 1 mg PO DAILY lamotrigine 300 mg PO BID levetiracetam 0 mg PO norethindrone-e.estradiol-iron 1 mg-20 mcg ()/75 mg () ( FE 07/08 ()) 1 tab PO DAILY 12 weeks oxcarbazepine 150 mg PO BID sertraline 150 mg (1.5 x 100 mg) PO DAILY 90 days Tobacco use date assessed: 12/13/24 Dental Screening Dental Screen Date: 10/03/24 HPI 2-3 mo f/u labs HPI Details 24 y/o female presents to f/u anxiety/depression with PTSD. Referred her to psychiatric consult team. Also f/u labs. Labs drawn 12/06/24. Reviewed labs with pt. Triglycerides 115. TC 163. LDL 68. HDL 72. Vitamin D low at 8.3. She notes she has not heard back from the consult team. HPI Comments History of Present Illness Details Documentation assistance for Mehrdad Chu MD, was provided by Sage Krueger,? Hospice Educator on 12/13/2024 at 11:38 AM BJ. I, Dr. Chu, have read, observed, and verified documentation. [facility] Medical History (Updated 12/13/24 @ 11:28 by Sage Krueger) Anxiety Depression Epilepsy Surgical History (Updated 12/13/24 @ 10:42 by Eliz Denny CMA) No pertinent past surgical history Family History (Updated 12/13/24 @ 10:43 by Eliz Denny CMA) Maternal Grandmother Diabetes Father High blood pressure Anxiety Mother Anxiety Depression Maternal Aunt Substance abuse Social History (Updated 12/13/24 @ 10:43 by Eliz Denny CMA) Housing: House Alcohol intake: former Patient Tobacco Use Status: Never used Tobacco e-Cigarette/Vaping Use: Currently Using Second Hand Smoke Exposure: No Substance Use Type: Marijuana Current occupational status: unemployed Cognitive needs: No (memory problems, needs to be reminded of things.) Hearing needs: No Vision needs: Yes (glasses) Questionnaire Thrive Questionnaire Date Thrive assessed: 10/03/24 I am a: Patient What is your living situation today?: I have a place to live, but I am worried about losing it in the future Within the past 12 months, did the food you bought not last and you didn't have the money to get more?: Never true Within the past 12 months, did you worry whether your food would run out before you got money to buy more?: Never true Do you have trouble paying for medicines?: No Do you have trouble getting transportation to medical appointments?: No Do you have trouble paying your heating and electricity bill?: I choose not to answer this question Do you have trouble taking care of your child, family member or friend?: No Do you have trouble with day-to-day activities such as bathing, preparing meals, shopping, managing finances, etc.?: No Are you currently unemployed and looking for a job?: No Are you interested in more education?: Yes Please select the resources that you would like help with: None THRIVE Score: 1 FAREED-7 AMB Questionnaire FAREED-7 Date FAREED - 7 assessed: 01/23/24 Source: Developed by Drs. Alexis Jean, Fabiola Strickland, Brant Mckeon and colleagues, with an educational lisette from [employer]. Review of Systems Const Denies chills, Denies fatigue, Denies fever(s), Denies headache(s) and Denies weakness ENT Denies dizziness and Denies headache(s) Card Denies dyspnea Resp Denies cough, Denies dyspnea, Denies wheezing and Denies other (shortness of breath) Musc Denies numbness and Denies tingling Neuro Denies dizziness, Denies headache(s), Denies numbness, Denies tingling and Denies weakness Psych Reports anxiety and Reports depression Endo Denies fatigue Aller/Immun Denies wheezing Physical exam (Primary Care) Vital Signs: Last Vital Signs Temp 98.2 F 12/13/24 10:44 Pulse 70 12/13/24 10:44 Resp 12 12/13/24 10:44 BP 124/76 12/13/24 10:44 Pulse Ox 99 12/13/24 10:44 Oxygen Delivery Method Room Air 12/13/24 10:44 BMI result Body Mass Index 22.5 Tobacco/Smoking Status: Tobacco use Status Tobacco use date assessed 12/13/24 12/13/24 10:46 Patient Tobacco Use Status Never used Tobacco 12/13/24 10:43 e-Cigarette/Vaping Use Currently Using 12/13/24 10:43 Thrive Assessment: Date of Thrive Assessment Date Thrive assessed 10/03/24 12/13/24 10:39 Const General: well developed; No acute distress Nutritional Appearance: well nourished Orientation/consciousness: patient oriented x3 [facility]ENMT Head: Yes normocephalic and Yes atraumatic Eyes General: appearance normal, both eyes and all related structures Pupils: Equal, round and reactive pupils present EOM: EOMs intact bilaterally Resp Effort & Inspection: normal respiratory effort Auscultation: clear to auscultation bilaterally Cardio Rate: regular rate Rhythm: regular rhythm Heart sounds: S1 normal heart sound present, S2 normal heart sound present, no gallops, no murmurs and no rubs Neuro General: patient oriented x3 and gait normal Cranial nerves: Yes Equal, round and reactive pupils present Psych Affect: normal affect Coding Level of Care Code Est Pt Level 3 (04289) Diagnoses Anxiety and depression F41.9; F32.9 Low vitamin D level R79.89 Assessment & Plan Assessment & Plan (1) Anxiety and depression: Code(s): F41.9 - Anxiety disorder, unspecified; F32.9 - Major depressive disorder, single episode, unspecified Category: Medical Plan: Ongoing?significant?anxiety?and?depression. She?is?taking?her?medications?as?prescribed Had?made?a?referral?to[place]. She?has?not?been?contacted?yet.??Will?ask?the?office?to?expedite?this. Encouraged?exercise No SI/HI (2) Low vitamin D level: Code(s): R79.89 - Other specified abnormal findings of blood chemistry Category: Medical Plan: Significantly?low?vitamin-D?levels?and?I?have?sent?a?script We?can?follow-up?on?this?at?subsequent?visit Orders: Orders Basic Metabolic Panel Today F32.9 - Major depressive disorder, single episode, unspecified, F41.9 - Anxiety disorder, unspecified, Z00.00 - Encounter for general adult medical examination without abnormal findings UA CC w/rflx Micro + Cult Today F32.9 - Major depressive disorder, single episode, unspecified, F41.9 - Anxiety disorder, unspecified, Z00.00 - Encounter for general adult medical examination without abnormal findings Vitamin D 25-OH Total Today E55.9 - Vitamin D deficiency, unspecified Medications: New cholecalciferol (vitamin D3) 50 mcg PO DAILY 90 caps 3RF 90 days
[2024-12-13 10:44] VITALS: BP 124/76; PULSE 70; RESP 12; TEMP 36.8; O2SAT 99; BMI 22.5
== END 2024-12-13 11:41 | disposition home or self-care (01) ==
LOC: HO.HMCFM 10:30
PROVIDERS: PCP Family Medicine; Visit Provider Family Medicine
DX: F41.9 Anxiety disorder, unspecified (principal); F32.9 Major depressive disorder, single episode, unspecified; R79.89 Other specified abnormal findings of blood chemistry

== ENCOUNTER → 2024-12-13 10:30 | Outpatient (BNVA) | payer OTHER, SELFPAY | PROVIDERS: PCP Family Medicine; Visit Provider Family Medicine | DX: F41.9 Anxiety disorder, unspecified (principal); F32.A Depression, unspecified; F43.10 Post-traumatic stress disorder, unspecified; E55.9 Vitamin D deficiency, unspecified | CPT/HCPCS: 99212 ==

== ENCOUNTER 2025-03-17 11:37 | Outpatient (AMB) | payer OTHER, SELFPAY ==
[2025-03-17 11:44] VITALS: BP 122/80; PULSE 80; O2SAT 99; BMI 23.8
--- NOTE | 2025-03-17 11:44 | A.OFFPC_ITS ---
Vital Signs 03/17/25 11:44 Height 5 ft 7.32 in Weight 153 lb 6 oz BMI 23.8 BP 122/80 Blood Pressure Location Rt brachial Position Sitting Pulse 80 Pulse Source Pulse Oximeter Pulse Oximetry (%) 99 Oxygen Delivery Method Room Air Intake Visit Reasons: f/u low vitamin D, anxiety/depression Allergies amoxicillin Allergy (Intermediate, Verified 03/17/25 11:47) Hives penicillin V Allergy (Intermediate, Verified 03/17/25 11:47) Hives mold Allergy (Intermediate, Uncoded 03/17/25 11:47) Hives Medication List - Last Reconciled 03/17/25 by Mehrdad Chu MD cenobamate (Xcopri) 50 mg PO DAILY 30 days cholecalciferol (vitamin D3) 50 mcg PO DAILY 90 days clonazepam 0.5 mg PO BEDTIME folic acid 1 mg PO DAILY 90 days lamotrigine 300 mg (2 x 150 mg) PO BID 90 days levetiracetam 0 mg PO norethindrone-e.estradiol-iron 1 mg-20 mcg ()/75 mg () (07/08 ()) 1 tab PO DAILY 12 weeks oxcarbazepine 150 mg PO BID sertraline 150 mg (1.5 x 100 mg) PO DAILY 90 days Tobacco use date assessed: 03/17/25 Dental Screening Dental Screen Date: 03/17/25 Did you have a dental visit in the last 12 months?: No Did you have a dental problem in the last 6 months where you did not have access to dental care?: No Was dental information given to patient?: No HPI f/u low vitamin D, anxiety/depression HPI Details 25 y/o female presents today to f/u low vitamin D levels, anxiety/depression with PTSD. No recent labs to review for her vitamin D. PHQ-9 17, FAREED-7 16 today. Had went to the ED at the end of January for an episode of a seizure. Hx of epilepsy, complex partial seizure disorder. Pt notes she has been feeling fine. Has an appt. with Neurology in April. [facility] Medical History Anxiety Depression Epilepsy Surgical History No pertinent past surgical history Family History Maternal Grandmother Diabetes Father High blood pressure Anxiety Mother Anxiety Depression Maternal Aunt Substance abuse Social History Housing: House Alcohol intake: former Patient Tobacco Use Status: Never used Tobacco e-Cigarette/Vaping Use: Never Used Second Hand Smoke Exposure: No Substance Use Type: Marijuana Current occupational status: unemployed Cognitive needs: No (memory problems, needs to be reminded of things.) Hearing needs: No Vision needs: Yes (glasses) Questionnaire PHQ-9 Over the last 2 weeks, how often have you been bothered by any of the following problems? 1. Little interest or pleasure in doing things: nearly every day 2. Feeling down, depressed, or hopeless: nearly every day 3. Trouble falling or staying asleep, or sleeping too much: more than half the days 4. Feeling tired or having little energy: more than half the days 5. Poor appetite or overeating: not at all 6. Feeling bad about yourself - or that you are a failure or have let yourself or your family down: nearly every day 7. Trouble concentrating on things, such as reading the newspaper or watching television: several days 8. Moving or speaking so slowly that other people could have noticed. Or the opposite - being so fidgety or restless that you have been moving around a lot more than usual: several days 9. Thoughts that you would be better off or of hurting yourself in some way: more than half the days Total score: 17 Depression Screening Interpretation: Positive Depression Screening Follow-up: Community Mental Health Worker F/U Depression Screening Done: Yes Source: Developed by Drs. Alexis Jean, Fabiola Strickland, Brant Mckeon and colleagues, with an educational lisette from [employer]. Thrive Questionnaire Date Thrive assessed: 03/17/25 I am a: Patient What is your living situation today?: I have a place to live, but I am worried about losing it in the future Within the past 12 months, did the food you bought not last and you didn't have the money to get more?: Never true Within the past 12 months, did you worry whether your food would run out before you got money to buy more?: Never true Do you have trouble paying for medicines?: No Do you have trouble getting transportation to medical appointments?: No Do you have trouble paying your heating and electricity bill?: I choose not to answer this question Do you have trouble taking care of your child, family member or friend?: No Do you have trouble with day-to-day activities such as bathing, preparing meals, shopping, managing finances, etc.?: No Are you currently unemployed and looking for a job?: No Are you interested in more education?: Yes Please select the resources that you would like help with: None THRIVE Score: 1 AUDIT C Alcohol Use Questionnaire (AUDIT-C) 1. How often do you have a drink containing alcohol?: Monthly or less 2. How many drinks containing alcohol do you have on a typical day when you are drinking?: 3 or 4 3. How often do you have six or more drinks on one occasion?: Never Total Score: 2 FAREED-7 AMB Questionnaire FAREED-7 Date FAREED - 7 assessed: 10/03/24 Feeling nervous, anxious, or on edge: 3 = Nearly every day Not being able to stop or control worryin = Nearly every day Worrying too much about different things: 3 = Nearly every day Trouble relaxin = Nearly every day Being so restless that it is hard to sit still: 1 = Several days Becoming easily annoyed or irritable: 1 = Several days Feeling afraid as if something awful might happen: 2 = More than half the days Total FAREED-7 score (0-4 normal; 5-9 mild; 10-14 moderate; 15-21 severe): 16 Source: Developed by Drs. Alexis Jean, Fabiola Strickland, Brant Mckeon and colleagues, with an educational lisette from [employer]. Review of Systems Const Denies chills, Denies fatigue, Denies fever(s), Denies headache(s) and Denies weakness ENT Denies dizziness and Denies headache(s) Card Denies dyspnea Resp Denies cough, Denies dyspnea, Denies wheezing and Denies other (shortness of breath) Musc Denies numbness and Denies tingling Neuro Denies dizziness, Denies headache(s), Denies numbness, Denies tingling and Denies weakness Psych Reports anxiety and Reports depression Endo Denies fatigue Aller/Immun Denies wheezing Physical exam (Primary Care) Vital Signs: Last Vital Signs Pulse 80 03/17/25 11:44 BP 122/80 03/17/25 11:44 Pulse Ox 99 03/17/25 11:44 Oxygen Delivery Method Room Air 03/17/25 11:44 BMI result Body Mass Index 23.8 Tobacco/Smoking Status: Tobacco use Status Tobacco use date assessed 03/17/25 03/17/25 11:48 Patient Tobacco Use Status Never used Tobacco 03/17/25 11:48 e-Cigarette/Vaping Use Never Used 03/17/25 11:48 PHQ-9: PHQ-9 Score PHQ-9: Total score 17 03/17/25 12:03 Depression Screening Interpretation: Positive Depression Screening Follow-up: Community Mental Health Worker F/U Thrive Assessment: Date of Thrive Assessment Date Thrive assessed 03/17/25 03/17/25 11:48 Const General: well developed; No acute distress Nutritional Appearance: well nourished Orientation/consciousness: patient oriented x3 HENMT Head: Yes normocephalic and Yes atraumatic Eyes General: appearance normal, both eyes and all related structures Pupils: Equal, round and reactive pupils present EOM: EOMs intact bilaterally Resp Effort & Inspection: normal respiratory effort Neuro General: patient oriented x3 and gait normal Cranial nerves: Yes Equal, round and reactive pupils present Psych Affect: normal affect Coding Level of Care Code Est Pt Level 4 (30305) Diagnoses Anxiety and depression F41.9; F32.9 PTSD (post-traumatic stress disorder) F43.10 Low vitamin D level R79.89 Complex partial seizure disorder G40.209 Assessment & Plan Assessment & Plan (1) Anxiety and depression: Code(s): F41.9 - Anxiety disorder, unspecified; F32.9 - Major depressive disorder, single episode, unspecified Category: Medical Plan: Ongoing anxiety and depression Had referred patient to the [facility] outpatient [facility] consult team. However, patient's contact number is her mom's and she is over 24, no message was left. Patient has not been contacted. I gave her the phone number so she can call and make an appointment herself. Denies SI (2) PTSD (post-traumatic stress disorder): Code(s): F43.10 - Post-traumatic stress disorder, unspecified Category: Medical Plan: As above (3) Low vitamin D level: Code(s): R79.89 - Other specified abnormal findings of blood chemistry Category: Medical Plan: Vitamin-D level was quite low and she was given a supplement which she started after last visit She will be check vitamin-D levels today. (4) Complex partial seizure disorder: Code(s): G40.209 - Localization-related (focal) (partial) symptomatic epilepsy and epileptic syndromes with complex partial seizures, not intractable, without status epilepticus Category: Medical Plan: History of seizures and recent ED visit in late January. She notes she has had a couple of seizures since then Had referred her to Neurology but she has not been contacted. Gave her the phone number for neurology and she contact them directly. Orders: Referrals Psychiatry Outpatient Consultation Service F32.9 - Major depressive disorder, single episode, unspecified, F41.9 - Anxiety disorder, unspecified, F43.10 - Post-traumatic stress disorder, unspecified, R45.851 - Suicidal ideations
--- OUTSIDE RECORDS SUMMARY | 2025-03-17 13:04 | XMS_ITS | Encounter Summary ---
Author Organization [facility] Address [address] [place] [address] Care Team Providers Care Printed Circuit Board Assembly Repairer Name Role Phone Lance Padron MD Primary Care Provider Unavail able Rika Sarabia MD Primary Care Provider Unava ilable Vernoica Jerome DO Primary Care Provider Unav ailable [facility], Pcp Primary Care Provider Unavailjaime e Veronica Jerome DO Primary Care Provider Unav ailable Ladonna Hinojosa MD Primary Care Provider Nikki Dimas Guadarrama Primary Care Provider Renita wheat Encounter Details Date Type Department Care Team Description 02/05/2010 Business Doc Medical Records [address] [place] [id number] Abstract, Provider Social History Tobacco Use Types Packs/Day Years Used Date Smoking Tobacco: Passive Smo ke Exposure - Never Smoker Comments:mom outside Alcohol Use Standard Drinks/Week Comments Not Asked 0 (1 standard drink = 0.6 oz pur e alcohol) Sex Assigned at Date Recorded Female 02/11/2021 9:57 PM E DT documented as of this encounter Plan of Treatment Not on file documented as of this encounter Visit Diagnoses Not on filedocumented in this encounter Care Teams Printed Circuit Board Assembly Repairer Relationship Specialty Start Date End Date Lance Padron MD PCP - General 00 10/26/15 Rika Sarabia MD PCP - General Internal Medicine 10/27/15 04/13/16 Veronica Jerome, PCP - General Pediatrics 04/14/16 11/07/16 [facility], Pcp PCP - General Internal Medicine 11/08/16 11/23/16 Veronica Jerome, PCP - General Pediatrics 11/24/16 04/03/17 Ladonna Hinojosa MD PCP - General Pediatrics 04/04/17 04/24/22 Dimas Clifford PCP - General Internal Medicine 04/25/22 documented as of this encounter
--- OUTSIDE RECORDS SUMMARY | 2025-03-17 13:05 | XMS_ITS | Encounter Summary ---
Author Organization [facility] Address [address] [place] [address] Care Team Providers Care Pneumatic Tester Name Role Phone Ladonna Hinojosa MD Primary Care Provider Dimas Enriquez Primary Care Provider Renita wheat Encounter Details Date Type Department Care Team Description 09/05/2019 Orders Only Medicine/Pediatrics - [address] [id number] Kashmir Buchanan MD Social History Tobacco Use Types Packs/Day Years Used Date Smoking Tobacco: Passive Smo ke Exposure - Never Smoker Smokeless Tobacco: Never Comments:mom outside Alcohol Use Standard Drinks/Week Comments No 0 (1 standard drink = 0.6 oz pur e alcohol) Sex Assigned at Date Recorded Female 02/11/2021 9:57 PM E DT documented as of this encounter Plan of Treatment Not on file documented as of this encounter Visit Diagnoses Not on filedocumented in this encounter Care Teams Pneumatic Tester Relationship Specialty Start Date End Date Ladonna Hinojosa MD PCP - General Pediatrics 04/04/17 04/24/22 Dimas Clifford PCP - General Internal Medicine 04/25/22 documented as of this encounter
--- OUTSIDE RECORDS SUMMARY | 2025-03-17 13:05 | XMS_ITS | Encounter Summary ---
Author Organization [facility] Address [address] [place] [address] Care Team Providers Care Faucets Assembler Name Role Phone Lance Padron MD Primary Care Provider Unavail able Rika Sarabia MD Primary Care Provider Unava ilable Veronica Jerome DO Primary Care Provider Unav ailable Count Includes [facility], Pcp Primary Care Provider UnavailVeronica Faria DO Primary Care Provider Unav ailable Ladonna Hinojosa MD Primary Care Provider Dimas Enriquez Primary Care Provider Renita wheat Encounter Details Date Type Department Care Team Description 07/31/2015 Release of Information Medical Records [address] [place] [id number] Abstract, Provider Social History Tobacco Use Types [...] on filedocumented in this encounter Care Teams Faucets Assembler Relationship Specialty Start Date End Date Lance Padron MD PCP - General 00 10/26/15 Rika Sarabia MD PCP - General Internal Medicine 10/27/15 04/13/16 Veronica Jerome, DO PCP - General Pediatrics 04/14/16 11/07/16 Count Includes [facility], Pcp PCP - General Internal Medicine 11/08/16 11/23/16 Veronica Jerome, PCP - General Pediatrics 11/24/16 04/03/17 Ladonna Hinojosa MD PCP - General Pediatrics 04/04/17 04/24/22 Dimas Clifford PCP - General Internal Medicine 04/25/22 documented as of this encounter
--- OUTSIDE RECORDS SUMMARY | 2025-03-17 13:05 | XMS_ITS | Encounter Summary ---
Author Organization [facility] Address [address] [place] [address] Care Team Providers Care Aerobics Teacher Name Role Phone Ladonna Hinojosa MD Primary Care Provider Dimas Enriquez Primary Care Provider Unavaila ble Reason for Visit * Reason Comments E-prescribe Rx Request Encounter Details Date Type Department Care Team Description 06/07/2020 Refill Pediatrics - [address] [address] Ladonna Hinojosa MD E-prescribe Rx Request Social History Tobacco Use Types Packs/Day Years Used Date Smoking Tobacco: Passive Smo ke Exposure - Never Smoker Smokeless Tobacco: Never Comments:mom outside Alcohol Use Standard Drinks/Week Comments No 0 (1 standard drink = 0.6 oz pur e alcohol) Sex Assigned at Date Recorded Female 02/11/2021 9:57 PM E DT documented as of this encounter Miscellaneous Notes * Telephone Encounter - Jess Calderon - 06/15/2020 1:22 PM EST Wasn't able to get an appt with pcp pt opted for seeing dr cobos on 07/07/20 @ 345 * Telephone Encounter - Giovani Cobos MD - 06/08/2020 8:13 AM EST I have approved a 1 month supply of sertraline Needs followup appointment with PCP within 1 month * Telephone Encounter - Mamta Johnson L.P.N. - 06/07/2020 10:[address] Hinojosa out of office, message routed to Dr. Cobos * Telephone Encounter - Carolyn Sharmin - 06/07/2020 9:45 AM EST When was patients last PE/WCC? MED REVIEW 10/08/19 When is patients next PE/WCC scheduled? On wait list Ladonna Hinojosa RX REQUEST WHEN MED IS ON THE LIST: All of the medications requested were on the CURRENT MEDS list Did you check the Pharmacy information above?: YES Indicate how soon the patient needs the script: OK FOR NEXT DAY Patient would like script to be: E-PRESCRIBED/FAXED TO PHARMACY Is the doctor here today?: NO Can the message wait until the doctor returns?: YES Has the patient been told that the prescription will not be filled until the end of the day? NO Ladonna Hinojosa Payor: [facility] PLAN / Plan: -[facility] $0 / Product Type: HMO [id number] documented in this encounter Plan of Treatment Not on file documented as of this encounter Visit Diagnoses Not on filedocumented in this encounter Care Teams Aerobics Teacher Relationship Specialty Start Date End Date Ladonna Hinojosa MD PCP - General Pediatrics 04/04/17 04/24/22 Dimas Clifford PCP - General Internal Medicine 04/25/22 documented as of this encounter
--- OUTSIDE RECORDS SUMMARY | 2025-03-17 13:05 | XMS_ITS | Encounter Summary ---
Author Organization [facility] Address [address] [place] [address] Care Team Providers Care Md Senior Research Scientist Name Role Phone Ladonna Hinojosa MD Primary Care Provider Dimas Enriquez Primary Care Provider Renita wheat Encounter Details Date Type Department Care Team Description 11/30/2018 Survey Research Analyst Report Medical Records [address] [place] [address] Junior Camarillo Social History Tobacco Use Types Packs/Day Years [...] on filedocumented in this encounter Care Teams Md Senior Research Scientist Relationship Specialty Start Date End Date aLdonna Hinojosa MD PCP - General Pediatrics 04/04/17 04/24/22 Dimas Clifford PCP - General Internal Medicine 04/25/22 documented as of this encounter
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
--- OUTSIDE RECORDS SUMMARY | 2025-03-17 13:05 | XMS_ITS | Encounter Summary ---
Author Organization [facility] Address [address] [place] [address] Care Team Providers Care Metal Bonding Worker Name Role Phone Ladonna Hinojosa MD Primary Care Provider Dimas Enriquez Primary Care Provider Unavaila ble Reason for Visit * Reason Onset Date Comments Testing 04/17/2017 Encounter Details Date Type Department Care Team Description 04/17/2017 Telephone Radiology - [address] [address] Chen Paula CNM Testing Social History Tobacco Use Types Packs/Day Years Used Date Smoking Tobacco: Passive Smo ke Exposure - Never Smoker Smokeless Tobacco: Never Comments:mom outside Alcohol Use Standard Drinks/Week Comments Not Asked 0 (1 standard drink = 0.6 oz pur e alcohol) Sex Assigned at Date Recorded Female 02/11/2021 9:57 PM E DT documented as of this encounter Miscellaneous Notes * Telephone Encounter - Marla Pires - 04/17/2017 11:14 AM EDT FYI: Kate Strickland has not responded to the telephone calls that were made as well as the letter that was sent to schedule a SONO PELVIS COMPLETE Therefore we are removing the test from our Scheduled Orders Report. Please note that this test must be reordered if required in the future. Thank you, Radiology Marla documented in this encounter Plan of Treatment Not on file documented as of this encounter Visit Diagnoses Not on filedocumented in this encounter Care Teams Metal Bonding Worker Relationship Specialty Start Date End Date Ladonna Hinojosa MD PCP - General Pediatrics 04/04/17 04/24/22 Dimas Clifford PCP - General Internal Medicine 04/25/22 documented as of this encounter
--- OUTSIDE RECORDS SUMMARY | 2025-03-17 13:05 | XMS_ITS | Encounter Summary ---
Author Organization [facility] Address [address] [place] [address] Care Team Providers Care Mortar Mixer Name Role Phone Ladonna Hinojosa MD Primary Care Provider Dimas Enriquez Primary Care Provider Unavaila ble Reason for Visit * Reason Onset Date Comments Medication 07/08/2020 Encounter Details Date Type Department Care Team Description 07/08/2020 Telephone Pediatrics - [address] [address] Giovani Hanson MD Medication Social History Tobacco Use Types Packs/Day Years Used Date Smoking Tobacco: Passive Smo ke Exposure - Never Smoker Smokeless Tobacco: Never Comments:mom outside Alcohol Use Standard Drinks/Week Comments No 0 (1 standard drink = 0.6 oz pur e alcohol) Sex Assigned at Date Recorded Female 02/11/2021 9:57 PM E DT documented as of this encounter Miscellaneous Notes * Telephone Encounter - Giovani Hanson MD - 07/08/2020 2:34 PM EST I tried calling Kate again and once again got her voicemail but could not leave a message I sent her a vozero message... Kate I tried calling your cell phone with updated information on your medications Unfortunately the call went to your voicemail and the inbox was full so I could not leave a message As a consequence I am sending this [email or web address] message I did speak with a psychiatry technology sales consultant about your use of two different antidepressant medicationswith a history of a seizure disorder She recommended that you wean off of the Bupropion (also known as Welbutrin) which is 75 mgs per pill. You would do this cutting the Bupropion tablet in half and taking 1/2 tablet once per day for 4 days then stop the Bupropion You would continue to take the Sertraline at the current dose of 100 mg (1 tablet) once per day You would also continue to take your seizure medication as directed by your neurologist You should set up a followup office visit with your primary care doctor in 1-2 months to revisit your medications This would also be a good time to have a routine check up You should also contact your neurologist for seizure followup Please reply to this message to indicate your have read the information Call our office if you have any additional questions * Telephone Encounter - Giovani Hanson MD - 07/08/2020 10:15 AM EST I spoke with [facility] psychiatrist about Kate's current medication regimen Of the two antidepressants the Welbutrin provides higher risk of seizure and should be discontinued The Welbutrin 75 mg po q day is a low dose and short acting version. It can be cut in half. She can stop Welbutrin abruptly but may have some headaches and fatigue. Wean suggested. She should remain on the current sertraline 100 mg po q day and Lamictal as prescribed by her neurologist. Will plan to have her take Welbutrin (75 mg/ea) 1/2 tablet once per day for 4 days then stop that med. She should followup with her PCP and Neurologist within 1 month She does need a well check I tried calling Kate's cell phone and got her voicemail which said her mail box was full so no message could be left. I will try calling again later today * Telephone Encounter - Giovani Hanson MD - 07/08/2020 9:53 AM EST I spoke with Basia from [facility] to initiate a psychiatric med consult for Kate She will have psychiatric provider call me back to review the medication concerns documented in this encounter Plan of Treatment Not on file documented as of this encounter Visit Diagnoses Not on filedocumented in this encounter Care Teams Mortar Mixer Relationship Specialty Start Date End Date Ladonna Hinojosa MD PCP - General Pediatrics 04/04/17 04/24/22 Dimas Clifford PCP - General Internal Medicine 04/25/22 documented as of this encounter
--- OUTSIDE RECORDS SUMMARY | 2025-03-17 13:05 | XMS_ITS | Encounter Summary ---
Author Organization [facility] Address [address] [place] [address] Care Team Providers Care Boiler Or Engine Operator Name Role Phone Ladonna Hinojosa MD Primary Care Provider Dimas Enriquez Primary Care Provider Unavaila ble Reason for Visit * Reason Comments E-prescribe Rx Request Encounter Details Date Type Department Care Team Description 10/03/2020 Refill Pediatrics [address] [address] Giovani Hanson MD E-prescribe Rx Request Social History Tobacco [...] encounter Miscellaneous Notes * Telephone Encounter - Fly Delgado M.A. - 10/14/2020 2:10 PM EDT Unable to reach pt at this time- voicemail still full unable to leave message * Telephone Encounter - Fly Delgado M.A. - 10/05/2020 9:51 AM EDT Unable to reach pt as v/m is full. * Telephone Encounter - Ladonna Hinojosa MD - 10/05/2020 8:34 AM EDT I have not seen this patient in quite a while with no WCC visit since 2018 Had telehealth with another provider and was told to f/u in one month Had prior behavioral health person who prescribed the welbutrin - needs to f/u with that person Also with neurology * Telephone Encounter - Carolyn Finney - 10/03/2020 9:00 AM EDT When was patients last PE/WCC? 04/17/18 When is patients next PE/WCC scheduled? On [...] of the day? NO Ladonna Hinojosa Payor: [facility] / Plan: [facility] $0 / Product Type: HMO [id number] documented in this encounter Plan of Treatment Not on file documented as of this encounter Visit Diagnoses Not on filedocumented in this encounter Care Teams Boiler Or Engine Operator Relationship Specialty Start Date End Date Ladonna Hinojosa MD PCP - General Pediatrics 04/04/17 04/24/22 Dimas Clifford PCP - General Internal Medicine 04/25/22 documented as of this encounter
--- OUTSIDE RECORDS SUMMARY | 2025-03-17 13:05 | XMS_ITS | Encounter Summary ---
Author Organization [facility] Address [address] [place] [address] Care Team Providers Care Heater Installer Name Role Phone Ladonna Hinojosa MD Primary Care Provider Dimas Enriquez Primary Care Provider Unavaila ble Reason for Visit * Reason Comments E-prescribe Rx Request Encounter Details Date Type Department Care Team Description 09/02/2019 Refill Pediatrics - [address] [phone] Ladonna Hinojosa MD E-prescribe Rx Request Social [...] encounter Miscellaneous Notes * Telephone Encounter - Radha Lucero - 09/03/2019 1:53 PM EDT When was patients last PE/WCC? 04-17-18 When is patients next PE/WCC scheduled? Ladonna Hinojosa RX REQUEST WHEN MED IS [...] the message wait until the doctor returns?: NO Has the patient been told that the prescription will not be filled until the end of the day? YES Ladonna Hinojosa Payor: [employer] / Plan: [employer] [place] / Product Type: MEDICAID RISK documented in this encounter Plan of Treatment Not on file documented as of this encounter Visit Diagnoses Not on filedocumented in this encounter Care Teams Heater Installer Relationship Specialty Start Date End Date Ladonna Hinojosa MD PCP - General Pediatrics 04/04/17 04/24/22 Dimas Clifford PCP - General Internal Medicine 04/25/22 documented as of this encounter
== END 2025-03-17 12:21 | disposition home or self-care (01) ==
LOC: HO.HMCFM 11:38
PROVIDERS: PCP Family Medicine; Visit Provider Family Medicine
DX: G40.209 Localization-related (focal) (partial) symptomatic epilepsy and epileptic syndromes with complex partial seizures, not intractable, without status epilepticus (principal); F41.9 Anxiety disorder, unspecified; F32.9 Major depressive disorder, single episode, unspecified; F43.10 Post-traumatic stress disorder, unspecified; R79.89 Other specified abnormal findings of blood chemistry

== ENCOUNTER → 2025-03-17 11:37 | Outpatient (BNVA) | payer OTHER, SELFPAY | PROVIDERS: PCP Family Medicine; Visit Provider Family Medicine | DX: G40.209 Localization-related (focal) (partial) symptomatic epilepsy and epileptic syndromes with complex partial seizures, not intractable, without status epilepticus (principal); F43.10 Post-traumatic stress disorder, unspecified; F41.9 Anxiety disorder, unspecified; E55.9 Vitamin D deficiency, unspecified; F32.9 Major depressive disorder, single episode, unspecified; R79.89 Other specified abnormal findings of blood chemistry; R45.851 Suicidal ideations | CPT/HCPCS: 99212 ==